=== PATIENT | female | born 1950 | race Caucasian/White ===

== ENCOUNTER 2017-09-05 19:38 | Emergency (ER) | payer OTHER ==
[~2017-09-05] VITALS: Ht 165.1 cm; Wt 115.7 kg
[2017-09-05 21:34] LABS: MCH 26.9 PG (29.0-34.0); MCHC 31.3 G/DL (30.0-36.0); MCV 86.1 FL (83-99); MEAN PLAT.VOLUME 10.1 uM^3 (9.5-12.4); PLATELET COUNT 318 K/uL (156-360); RBC DIS.WIDTH-CV 14.6 % (11.8-14.6); RBC DIS.WIDTH-SD 45.8 % (39-53); RED BLOOD COUNT 4.53 M/uL (3.80-5.20); WHITE BLOOD COUNT 12.5 K/uL (4.1-10.2)
[2017-09-05 21:43] LABS: CHLORIDE 105 mEq/L (99-109); POTASSIUM 3.7 mEq/L (3.7-5.4); SODIUM 142 mEq/L (136-147)
[2017-09-05 21:45] LABS: GLUCOSE 169 mg/dL (70-99)
[2017-09-05 21:46] LABS: ANION GAP 14 MEQ/L (2-14)
[2017-09-05 21:49] LABS: GFR ESTIMATE (CALCULATED) 53 mL/min/
[2017-09-05 21:50] LABS: UREA NITROGEN (BUN) 16 mg/dL (9-23)
[2017-09-05] MEDS ORDERED: FUTURO RESTORI1 EACH MC (22:08)
[2017-09-05] MEDS ORDERED: KEFLEX500 MG PO (22:08)
[2017-09-05 22:14] VITALS: BP 148/70
== END 2017-09-05 22:15 | disposition home or self-care (01) ==
LOC: EME 19:38
PROVIDERS: Nurse Practitioner Family
DX: R60.0 Localized edema (principal); M25.572 Pain in left ankle and joints of left foot; Z90.710 Acquired absence of both cervix and uterus; Z87.891 Personal history of nicotine dependence
CPT/HCPCS: 80048; 85027; 93971; 99281; 99283